=== PATIENT | female | born 1960 | race Caucasian/White ===

== ENCOUNTER 2017-01-26 18:44 | Emergency (ER) | payer BC, OTHER ==
--- NOTE | 2017-01-26 19:21 | ED ---
Hypertension - HPI Summary HPI Summary: 56 year old female with high blood pressure . Patient had her BP checked at a health fair at work and it was very high. She is here to get checked out. [ End ] - History of Current Complaint Stated Complaint: HIGH BLOOD PRESSURE Time Seen by Provider: 01/26/17 19:17 Hx Obtained From: Patient Timing: Intermittent Aggravating Factor(s): Nothing Alleviating Factor(s): Nothing Associated Signs & Symptoms: Negative Related Hx: Similar Episode - Allergies/Home Medications Allergies/Adverse Reactions: Allergies Allergy/AdvReac Type Severity Reaction Status Date / Time No Known Allergies Allergy Verified 01/26/17 19:31 Home Medications: Home Medications Cholecalciferol [Vitamin D] 1,000 unit PO DAILY 01/26/17 [History Confirmed ] Cyanocobalamin TAB* [Vitamin B12 TAB*] 500 mcg PO DAILY 01/26/17 [History Confirmed 01/26/17] Multivitamins/Minerals TAB* [Thera M Plus TAB*] 1 tab PO DAILY 01/26/17 [ History Confirmed 01/26/17] PMH/Surg Hx/FS Hx/Imm Hx Previously Healthy: Yes - Family History Known Family History: Positive: None Negative: Hypertension - Social History Occupation: Employed Full-time Lives: With Family Hx Tobacco Use: No Review of Systems Constitutional: Negative Eyes: Negative ENT: Negative Cardiovascular: Negative Negative: Palpitations, Chest Pain All Other Systems Reviewed And Are Negative: Yes Physical Exam Triage Information Reviewed: Yes Vital Signs Reviewed: Yes Appearance: Positive: Well-Appearing, No Pain Distress, Well-Nourished Skin: Positive: Warm Head/Face: Positive: Normal Head/Face Inspection Eyes: Positive: Normal ENT: Positive: Normal ENT inspection Neck: Positive: Supple Respiratory/Lung Sounds: Positive: Clear to Auscultation, Breath Sounds Present Cardiovascular: Positive: Normal, RRR Musculoskeletal: Positive: Normal Neurological: Positive: Normal Psychiatric: Positive: Normal Hypertension Course/Dx - Course Course Of Treatment: With the BP being so elevated concern for HTN Urgency -- [place] go [place] [facility] [place] for [place] and work up and discussed this with Ian HORAN -- did d/w [facility] but was told they will not treat HTN unless end organ damage - Diagnoses Provider Diagnoses: HTN (hypertension) Discharge - Discharge Plan Condition: Fair Disposition: TRANS HIGHER LVL OF CARE FAC Patient Education Materials: Hypertension (ED) Referrals: Mitra Hirsch MD [Primary Care Provider] - Additional Instructions: YOU HAVE BEEN ADVISED TO GO TO THE EMERGENCY ROOM FOR FURTHER EVALUATION.
== END 2017-01-26 20:23 ==
LOC: UCCORT 18:44
DX: I10 Essential (primary) hypertension (principal)
CPT/HCPCS: 99202; G0463